=== PATIENT | female | born 1990 | race African-American/Black ===

== ENCOUNTER 2021-10-19 17:35 | Emergency (ER) | payer BC ==
[~2021-10-19] VITALS: Ht 152.4 cm; Wt 65.9 kg
[2021-10-19 17:45] VITALS: BP 163/85
[2021-10-19] MEDS ORDERED: HYDROcodone/APAP 5/325MG 1 TAB TABLET PO ONE (18:00)
[2021-10-19] MEDS ORDERED: IBUPROFEN 200 MG TABLET. PO ONE (18:00)
--- NOTE | 2021-10-19 18:01 | PHYS DOC ---
General Adult EDM: Chief Complaint: SHOULDER INJURY HPI: HPI: Patient is a 31 year old female who presents with last night she states that she lost her balance falling on her left side. She now complains of left humerus pain, left shoulder pain, left clavicle pain. She states last night she took 800 mg ibuprofen but nothing today. She states she went to work lifted a box and then she felt a pain that was a burning type pain in the arm. Patient is very vague and not giving a whole lot information on how she fell or why she fell. She denies hitting her head, neck pain, chest pain, shortness of breath, abdominal pain, nausea, vomiting, dizziness, syncope, focal weakness, numbness or tingling. Rating her pain 8 out of 10. Review of Systems: Review of Systems: Constitutional: Denies fever or chills. [] Eyes: Denies change in visual acuity. [] HENT: Denies nasal congestion or sore throat. [] Respiratory: Denies cough or shortness of breath. [] Cardiovascular: Denies chest pain or edema. [] GI: Denies abdominal pain, nausea, vomiting, bloody stools or diarrhea. [] : Denies dysuria. [] Musculoskeletal: Denies back pain or + left shoulder joint pain. + Left clavicle pain. + Left humerus pain. [] Integument: Denies rash. [] Neurologic: Denies headache, focal weakness or sensory changes. [] Endocrine: Denies polyuria or polydipsia. [] Lymphatic: Denies swollen glands. [] Psychiatric: Denies depression or anxiety. [] Heart Score: C/O Chest Pain: No Physical Exam: PE: Constitutional: Well developed, well nourished, no acute distress, non-toxic appearance. [] HENT: Normocephalic, atraumatic, bilateral external ears normal, oropharynx moist, no oral exudates, nose normal. [] Eyes: PERRLA, EOMI, conjunctiva normal, no discharge. [] Neck: Normal range of motion, no tenderness, supple, no stridor. [] Cardiovascular:Heart rate regular rhythm, no murmur [] Lungs & Thorax: Bilateral breath sounds clear to auscultation [] Abdomen: Bowel sounds normal, soft, no tenderness, no masses, no pulsatile masses. [] Skin: Warm, dry, no erythema, no rash. [] Back: No tenderness, no CVA tenderness. [] Extremities: No tenderness, no cyanosis, no clubbing, ROM intact, no edema. [] Neurologic: Alert and oriented X 3, normal motor function, normal sensory function, no focal deficits noted. [] Psychologic: Affect normal, judgement normal, mood normal. [] EKG: EKG: [] Radiology/Procedures: Radiology/Procedures: [] Impression: [facility] [address] [place] [address] IMAGING REPORT Signed PATIENT: BEAU LOWERY ACCOUNT: [id number] : 1990 LOCATION: ER AGE: 31 SEX: F EXAM STATUS: PRE ER ORD. PHYSICIAN: JOSH AVINA APRN REASON: fall, pain PROCEDURE: SHOULDER 2+V LEFT XR LEFT CLAVICLE, XR HUMERUS_LT 2 VIEWS, XR SHOULDER_LEFT 2+ VIEWS History: Reason: fall, pain / Spl. Instructions: / History: Technique: 2 views left clavicle, 3 views left shoulder and 2 views left humerus Comparison: None. Findings: Normal abdomen of the left clavicle. No acute fracture. Normal alignment of the left glenohumeral and acromioclavicular joints. No acute fracture. Normal alignment of the left humerus. No acute fracture. Impression: 1. No acute osseous abnormality. Electronically signed by: Pawan Escobar DO (10/19/2021 6:50 PM) [facility] DICTATED and SIGNED BY: PAWAN ESCOBAR DO DATE: 10/19/21 [id number] 0 Course & Med Decision Making: Course & Med Decision Making Pertinent Labs and Imaging studies reviewed. (See chart for details) See HPI. Alert and oriented x4. Ambulatory steady gait. Speaks in full clear sentences. Lungs are clear to auscultation in all lobes. Patient has full range of motion of the left shoulder, elbow, wrist and fingers. Full strengths. No swelling. No joint deformity or focal weakness or laxity. Radial pulse strong present. Skin pink warm and dry. Cap refill less than 2 seconds. Sensations intact. Tenderness at the left clavicle and to the lateral humeral. No neck tenderness and she has full range of motion of her neck. No focal bony spinal tenderness. X-rays show no acute findings. Patient will be placed in a arm sling. [] Stephen Disclaimer: Stephen Disclaimer: This electronic medical record was generated, in whole or in part, using a voice recognition dictation system. Departure Departure Impression: Primary Impression: Shoulder pain, left Qualified Codes: M25.512 - Pain in left shoulder Additional Impressions: Pain of left humerus Clavicle pain Fall Qualified Codes: W19.XXXA - Unspecified fall, initial encounter Disposition: HOME / SELF CARE / HOMELESS Condition: STABLE Referrals: ALFREDO OROZCO MD Patient Instructions: Contusion, Fall Prevention and Home Safety Additional Instructions: Follow-up with primary care provider. Use ice or heat to help with pain. Take ibuprofen for your pain. Take the muscle relaxer as it is prescribed. Remember that the muscle relaxers can make you sleepy so you should not drive, work or drink any alcohol on this. Scripts Cyclobenzaprine Hcl (CYCLOBENZAPRINE HCL) 10 Mg Tablet 1 TAB PO TID, #15 TAB Prov: JOSH AVINA APRN 10/19/21 Ibuprofen (IBUPROFEN) 600 Mg Tablet 600 MG PO PRN Q6HRS PRN for INFLAMMATION, #30 TAB Prov: JOSH AVINA APRN 10/19/21 JOSH AVINA APRN Oct 19, 2021 18:01
--- NOTE | 2021-10-19 18:53 | RAD ---
XR RIBS MIN 3 VIEWS LT W/PA CHEST History: Reason: fall, pain / Spl. Instructions: / History: Technique: PA view the chest additional views of the left ribs. Comparison: None. Findings: No consolidation or pleural effusion. No pneumothorax. Left sided shunt catheter noted. Bilateral ban dage and catheters noted. No displaced rib fractures. Impression: 1. No acute cardiopulmonary process. No displaced rib fractures. Electronically signed by: Pawan Escobar DO (10/19/2021 6:51 PM) [facility]
--- NOTE | 2021-10-19 18:53 | RAD ---
XR LEFT CLAVICLE, XR HUMERUS_LT 2 VIEWS, XR SHOULDER_LEFT 2+ VIEWS History: Reason: fall, pain / Spl. Instructions: / History: Technique: 2 views left clavicle, 3 views left shoulder and 2 views left humerus Comparison: None. Findings: Normal abdomen of the left clavicle. No acute fracture. Normal alignment of the left glenohumeral and acromioclavicular joints. No acute fracture. Normal alignment of the left humerus. No acute fracture. Impression: 1. No acute osseous abnormality. Electronically signed by: Pawan Escobar DO (10/19/2021 6:50 PM) [facility]
--- NOTE | 2021-10-19 18:53 | RAD ---
XR LEFT CLAVICLE, XR HUMERUS_LT 2 VIEWS, XR SHOULDER_LEFT 2+ VIEWS History: Reason: fall, pain / Spl. Instructions: / History: Technique: 2 views left clavicle, 3 views left shoulder and 2 views left humerus Comparison: None. Findings: Normal abdomen of the left clavicle. No acute fracture. Normal alignment of the left glenohumeral and acromioclavicular joints. No acute fracture. Normal alignment of the left humerus. No acute fracture. Impression: 1. No acute osseous abnormality. Electronically signed by: Pawan Escobar DO (10/19/2021 6:50 PM) [facility]
[2021-10-19] MEDS ORDERED: CYCL10TA19 PO (18:57)
[2021-10-19] MEDS ORDERED: IBUP-1007 PO (18:57)
== END 2021-10-19 20:10 | disposition home or self-care (01) ==
LOC: ER 17:35
DX: M25.512 Pain in left shoulder (principal); M79.602 Pain in left arm; R07.89 Other chest pain; G89.11 Acute pain due to trauma; W18.39XA Other fall on same level, initial encounter; Y93.89 Activity, other specified; Y92.89 Other specified places as the place of occurrence of the external cause; Y99.8 Other external cause status
CPT/HCPCS: 71101; 73000; 73030; 73060; 99284; A4565